=== PATIENT | male | born 1955 | race Caucasian/White ===

== ENCOUNTER 2019-11-15 16:15 | Observation (INO) | payer OTHER ==
--- NOTE | 2019-11-15 16:44 | ERPHSYRPT ---
- History of Present Illness Time Seen by Provider: 11/15/19 16:42 Source: patient Exam Limitations: no limitations Patient Subjective Stated Complaint: pt here for cough, sob for about a week now ,no fever, pt has hx of copd. pt o2 sat 81% pt placed on 4 l nc. pt wears o2 at night Triage Nursing Assessment: pt alert, waked in, resp easy, skin w.d.p,moves all ext well, Physician History: pt here for cough, sob for about a week now,no fever, pt has hx of copd. pt o2 sat 81% pt placed on 4 l nc. pt wears o2 at night no chest pain Timing/Duration: week(s) (one week) Activities at Onset: none Severity of Dyspnea-Max: mild Severity of Dyspnea-Current: moderate Possible Cause: no prior episodes Associated Symptoms: weakness, No chest pain/discomfort, No fever, No loss of appetite, No productive cough, No sweating International travel in last 2 weeks: No Allergies/Adverse Reactions: Penicillins Allergy (Mild, Verified 11/15/19 16:33) Hives Oldnzbo-Qze-Swi Reductase Inhibitor Allergy (Mild, Verified 11/15/19 16:33) Hives tramadol Allergy (Mild, Verified 11/15/19 16:33) rash, difficulty walking- muscle soreness Home Medications: Amlodipine Besylate 5 mg [Norvasc 5 mg] 5 mg PO DAILY 12/04/15 [History] Gabapentin [Neurontin] 300 mg PO BID 12/04/15 [History] Omeprazole [Prilosec] 40 mg PO DAILY 12/04/15 [History] Tamsulosin HCl [Flomax] 0.4 mg PO BID 12/04/15 [History] ARIPiprazole [Aripiprazole] 5 mg DAILY 11/15/19 [History] Albuterol 8 gm Mdi Hfa [Ventolin Hfa MDI] 1 ea DAILY 11/15/19 [History] Clopidogrel Bisulfate [Clopidogrel] 75 mg DAILY 11/15/19 [History] Dulaglutide [Trulicity] 0.75 mg WEEKLY 11/15/19 [History] Fluoxetine HCl 40 mg DAILY 11/15/19 [History] Fluticasone/Umeclidin/Vilanter [Trelegy Ellipta 100-62.5-25] 1 ea DAILY [History] Furosemide 40 mg [Lasix 40 MG] 40 mg DAILY 11/15/19 [History] Metoprolol Succinate 50 mg DAILY 11/15/19 [History] Modafinil [Provigil] 200 mg DAILY 11/15/19 [History] Mometasone/Formoterol [Dulera 200 Mcg-5 Mcg Inhaler] 2 puff BID 11/15/19 [ History] Niacin 1,000 mg DAILY 11/15/19 [History] Potassium Chloride [Klor-Con M20] 20 meq DAILY 11/15/19 [History] Solifenacin Succinate 1 ea DAILY 11/15/19 [History] lisinopriL [Lisinopril] 20 mg DAILY 11/15/19 [History] raNITIdine HCl [Zantac] 2 ea BID 11/15/19 [History] Hx Tetanus, Diphtheria Vaccination/Date Given: No Hx Influenza Vaccination/Date Given: Yes Hx Pneumococcal Vaccination/Date Given: Yes Immunizations Up to Date: Yes Travel Risk - International Travel Have you traveled outside of the country in past 3 weeks: No Have you or anyone close to you been diagnosed with or: No Do your reside in a community with a known COVID-19 case?: Yes If Yes where:: [place] - Coronavirus Screening Has patient experienced Coronavirus symptoms: Yes Symptoms experienced: respiratory symptoms (i.e.Cought,shortness of breath), weakness Date of respiratory symptoms onset:: 11/09/19 - Review of Systems Constitutional: Malaise, Weakness, No Fever, No Chills Eyes: No Symptoms Ears, Nose, & Throat: No Symptoms Respiratory: Dyspnea, Dyspnea on Exertion (WANG), No Cough Cardiac: No Chest Pain, No Edema, No Syncope Abdominal/Gastrointestinal: No Abdominal Pain, No Nausea, No Vomiting, No Diarrhea Genitourinary Symptoms: No Dysuria Musculoskeletal: No Back Pain, No Neck Pain Skin: No Rash Neurological: No Dizziness, No Focal Weakness, No Sensory Changes Psychological: No Symptoms Endocrine: No Symptoms All Other Systems: Reviewed and Negative - Past Medical History Pertinent Past Medical History: Yes Neurological History: Peripheral Neuropathy ENT History: No Pertinent History Cardiac History: High Cholesterol, Hypertension, Myocardial Infarction (PR) Respiratory History: No Pertinent History Endocrine Medical History: Diabetes Type II Musculoskeletal History: Arthritis GI Medical History: GERD History: No Pertinent History Psycho-Social History: No Pertinent History Male Reproductive Disorders: No Pertinent History Other Medical History: URINARY RETENTION. GOUT. chronic back pain - Past Surgical History Past Surgical History: Yes Neuro Surgical History: No Pertinent History Cardiac: Cardiac Catheterization, Cardiac Stent Respiratory: No Pertinent History Gastrointestinal: No Pertinent History Genitourinary: No Pertinent History Musculoskeletal: No Pertinent History Male Surgical History: Prostate Surgery Other Surgical History: FINGER REPAIR - Social History Smoking Status: Former smoker Exposure to second hand smoke: No Drug Use: none Patient Lives Alone: No Significant Family History: no pertinent family hx - Nursing Vital Signs Nursing Vital Signs: Initial Vital Signs Temperature 97.6 F 11/15/19 16:25 Pulse Rate 85 11/15/19 16:25 Respiratory Rate 22 11/15/19 16:25 Blood Pressure 117/74 11/15/19 16:25 O2 Sat by Pulse Oximetry 81 L 11/15/19 16:25 Pain Scale Pain Intensity 0 - Physical Exam General Appearance: no apparent distress, alert Eye Exam: PERRL/EOMI Neck Exam: normal inspection, supple Respiratory Exam: diminished breath sounds Cardiovascular/Chest Exam: normal heart sounds, regular rate/rhythm Abdominal/Gastrointestinal Exam: soft, No tenderness, No distention, No mass Extremity Exam: non-tender, normal range of motion, normal inspection, no calf tenderness, no pedal edema Neurologic Exam: alert, oriented x 3, cooperative, contact center professional II-XII nml as tested, sensation nml, No motor deficits Skin Exam: normal color, warm, No dry SpO2 Interpretation: hypoxic SpO2: 81 O2 Delivery: Nasal Cannula - Course Nursing assessment & vital signs reviewed: Yes - Radiology Exams Chest X-ray Interpretation: Reviewed by me, Negative Ordered Tests: Active Orders 24 hr Category Date Time Status Territory Sales Manager Medical STAT Care 11/15/19 16:33 Active EKG-ER Only STAT Care 11/15/19 16:33 Active IV Insertion STAT Care 11/15/19 16:33 Active IV Insertion-2nd Peripheral STAT Care 11/15/19 17:11 Active Oxygen-ED Only Nasal Cannula 4 lpm Care 11/15/19 16:33 Active Pulse Oximetry (ED) STAT Care 11/15/19 16:34 Active CHEST 1 VIEW (PORTABLE) Stat Exams 11/15/19 16:40 Taken CBC W DIFF Stat Lab 11/15/19 16:30 Completed CMP Stat Lab 11/15/19 16:30 Completed Lactic Acid Stat Lab 11/15/19 16:40 Completed MAGNESIUM Stat Lab 11/15/19 16:30 Received Manual Differential NC Stat Lab 11/15/19 16:30 Completed TROPONIN Stat Lab 11/15/19 16:30 Received UA W/RFX UR CULTURE Stat Lab 11/15/19 17:00 Completed Medication Summary Generic Name Dose Route Start Last Admin Trade Name Freq PRN Reason Stop Dose Admin Sodium Chloride 2,000 mls @ 999 mls/hr 11/15/19 16:49 11/15/19 16:58 Sodium Chloride 0.9% 1000 Ml IV 11/15/19 18:49 999 mls/hr .Q2H1M STA Administration Discontinued Medications Generic Name Dose Route Start Last Admin Trade Name Freq PRN Reason Stop Dose Admin Sodium Chloride Confirm 11/15/19 16:57 Sodium Chloride 0.9% 1000 Ml Administered 11/15/19 16:58 Dose 2,000 mls @ ud .ROUTE .STK-MED ONE Insulin Human Lispro 20 unit 11/15/19 16:49 11/15/19 16:58 Humalog SQ 11/15/19 16:50 20 unit STAT ONE Administration Insulin Human Lispro Confirm 11/15/19 16:57 Humalog Administered 11/15/19 16:58 Dose 20 unit .ROUTE .STK-MED ONE Lab/Rad Data: Laboratory Result Diagrams 11/15/19 16:30 11/15/19 16:30 Laboratory Results 11/15/19 11/15/19 11/15/19 Range/Units 17:00 16:40 16:30 WBC (4.0-10.5) K/mm3 RBC (4.1-5.6) M/mm3 Hgb (12.5-18.0) gm/dl Hct (42-50) % MCV (78-100) fl MCH (26-32) pg MCHC (32-36) g/dl RDW (11.5-14.0) % Plt Count (150-450) K/mm3 MPV (7.5-11.0) fl Sodium 128 L (137-145) mmol/L Potassium 4.2 (3.5-5.1) mmol/L Chloride 89 L (98-107) mmol/L Carbon Dioxide 24 (22-30) mmol/L Anion Gap 18.7 H (5-15) MEQ/L BUN 23 H (9-20) mg/dL Creatinine 1.44 H (0.66-1.25) mg/dL Estimated GFR 52.8 ML/MIN Glucose 783 H* (74-106) mg/dL Lactic Acid 4.7 H (0.4-2.0) Calcium 8.8 (8.4-10.2) mg/dL Total Bilirubin 0.60 (0.2-1.3) mg/dL AST 32 (17-59) U/L ALT 28 (0-50) U/L Alkaline Phosphatase 99 (38-126) U/L Serum Total Protein 6.5 (6.3-8.2) g/dL Albumin 3.7 (3.5-5.0) g/dL Urine Color STRAW (YELLOW) Urine Appearance CLEAR (CLEAR) Urine pH 5.0 (5-6) Ur Specific [place] 1.026 (1.005-1.025) Urine Protein NEGATIVE (Negative) Urine Ketones NEGATIVE (NEGATIVE) Urine Blood NEGATIVE (0-5) Marco Antonio/ul Urine Nitrite NEGATIVE (NEGATIVE) Urine Bilirubin NEGATIVE (NEGATIVE) Urine Urobilinogen NEGATIVE (0-1) mg/dL Ur Leukocyte Esterase NEGATIVE (NEGATIVE) Urine WBC (Auto) NONE (0-5) /HPF Urine Mucus (Auto) SLIGHT (NEGATIVE) /HPF Urine Culture Reflexed NO (NO) Urine Glucose >=500 (NEGATIVE) mg/dL 11/15/19 Range/Units 16:30 WBC 6.7 (4.0-10.5) K/mm3 RBC 4.87 (4.1-5.6) M/mm3 Hgb 14.7 (12.5-18.0) gm/dl Hct 43.2 (42-50) % MCV 88.7 (78-100) fl MCH 30.2 (26-32) pg MCHC 34.0 (32-36) g/dl RDW 14.4 H (11.5-14.0) % Plt Count 124 L (150-450) K/mm3 MPV 11.1 H (7.5-11.0) fl Sodium (137-145) mmol/L Potassium (3.5-5.1) mmol/L Chloride (98-107) mmol/L Carbon Dioxide (22-30) mmol/L Anion Gap (5-15) MEQ/L BUN (9-20) mg/dL Creatinine (0.66-1.25) mg/dL Estimated GFR ML/MIN Glucose (74-106) mg/dL Lactic Acid (0.4-2.0) Calcium (8.4-10.2) mg/dL Total Bilirubin (0.2-1.3) mg/dL AST (17-59) U/L ALT (0-50) U/L Alkaline Phosphatase (38-126) U/L Serum Total Protein (6.3-8.2) g/dL Albumin (3.5-5.0) g/dL Urine Color (YELLOW) Urine Appearance (CLEAR) Urine pH (5-6) Ur Specific [place] (1.005-1.025) Urine Protein (Negative) Urine Ketones (NEGATIVE) Urine Blood (0-5) [place]/ul Urine Nitrite (NEGATIVE) Urine Bilirubin (NEGATIVE) Urine Urobilinogen (0-1) mg/dL Ur Leukocyte Esterase (NEGATIVE) Urine WBC (Auto) (0-5) /HPF Urine Mucus (Auto) (NEGATIVE) /HPF Urine Culture Reflexed (NO) Urine Glucose (NEGATIVE) mg/dL - Progress Air Movement: fair Blood Culture(s) Obtained: No Antibiotics given: No Counseled pt/family regarding: lab results, diagnosis, need for follow-up, rad results - Departure Departure Disposition: Observation Clinical Impression: Diabetic hyperosmolar non-ketotic state Condition: Fair Critical Care Time: Yes Critical Care Time(excluding separately billable procedures): Critical 30-74 mins Referrals: ARELI QUINTERO MD [Primary Care Provider] -
[2019-11-15] MEDS ORDERED: HUMALOG SQ ONE (16:49)
[2019-11-15] MEDS ORDERED: Sodium Chloride 0.9% 1000 ML 2,000 ML IV STA (16:49)
[2019-11-15] MEDS ORDERED: HUMALOG ONE (16:57)
[2019-11-15] MEDS ORDERED: Sodium Chloride 0.9% 1000 ML 2,000 ML ONE (16:57)
[2019-11-15 17:08] LABS: Hematocrit 43.2 % (42-50); Hemoglobin 14.7 gm/dl (12.5-18.0); Mean Cell Volume 88.7 fl (78-100); Mean Corpuscular Hemoglobin 30.2 pg (26-32); Mean Platelet Volume 11.1 fl (7.5-11.0); Platelet Count 124 K/mm3 (150-450); Red Blood Count 4.87 M/mm3 (4.1-5.6); Red Cell Distribution Width 14.4 % (11.5-14.0); White Blood Count 6.7 K/mm3 (4.0-10.5)
[2019-11-15 17:13] LABS: ALBUMIN 3.7 g/dL (3.5-5.0); ANION GAP 18.7 MEQ/L (5-15); BILIRUBIN,TOTAL 0.6 mg/dL (0.2-1.3); Calcium 8.8 mg/dL (8.4-10.2); Creatinine 1 1.44 mg/dL (0.66-1.25); Potassium 4.2 mmol/L (3.5-5.1); Total Protein 6.5 g/dL (6.3-8.2)
[2019-11-15 17:16] LABS: Appearance CLEAR (CLEAR); Bilirubin NEGATIVE (NEGATIVE); Blood NEGATIVE Ery/ul (0-5); Glucose >=500 mg/dL (NEGATIVE); Ketones NEGATIVE (NEGATIVE); Leukocyte Esterase NEGATIVE (NEGATIVE); Mucus SLIGHT /HPF (NEGATIVE); Nitrite NEGATIVE (NEGATIVE); Protein,Urine Dip NEGATIVE (Negative); Specific Gravity 1.026 (1.005-1.025); Urobilinogen NEGATIVE mg/dL (0-1)
[2019-11-15 17:26] LABS: INFLUENZA A NEGATIVE (NEGATIVE); INFLUENZA B NEGATIVE (NEGATIVE); RESPIRATORY SYNCTIAL VIRUS NEGATIVE (Negative)
[2019-11-15] MEDS ORDERED: Sodium Chloride 0.9% W/ 20 mEq KCl/LITER 1,000 ML IV SCH (17:59)
[2019-11-15] MEDS ORDERED: HUMULIN R 100 UNIT in Sodium Chloride 0.9% 100 ML IVPB 100 ML IV PRN (17:59)
[2019-11-15] MEDS ORDERED: HUMULIN R ONE (18:27)
[2019-11-15] MEDS ORDERED: Sodium Chloride 0.9% 100 ML IVPB 100 ML IV ONE (18:27)
[2019-11-15] MEDS ORDERED: Sodium Chloride 0.9% W/ 20 mEq KCl/LITER 1,000 ML IV ONE (18:28)
[2019-11-15] MEDS ORDERED: PROVENTIL 2.5 MG/3 ML NEB IH PRN (19:00)
--- NOTE | 2019-11-15 19:25 | XRAY ---
Indication: Cough and short of breath. Comparison: September 04, 2011. Portable chest now underinflated with bibasilar discoid atelectasis. Remaining heart and upper lungs unremarkable. Bony thorax intact with mild degenerative changes.
[2019-11-15] MEDS ORDERED: Ventolin Hfa MDI IH PRN (20:26)
[2019-11-15] MEDS: Advair Hfa 115/21 Common canister IH SCH (21:33)
[2019-11-15] MEDS ORDERED: VENTOLIN COMMON CANISTER IH PRN (21:34)
[2019-11-16] MEDS: Dextrose 5% -0.45 NaCl 1000 ML 1,000 ML IV SCH ×2 (03:52→19:46)
[2019-11-16 04:36] LABS: Lactic Acid 1.3 (0.4-2.0); VBG BASE EXCESS 0.8 (-2.0-2.0); VBG CARBOXYHEMOGLOBIN 4.4 % T HGB (0.0-6.9); VBG HCO3- 25.3 meq/L (22-28); VBG HEMOGLOBIN 14.6; VBG O2 SATURATION 98.8 (95-100); VBG POTASSIUM 3.4 (3.5-5.1); VBG pH 7.42 (7.32-7.42)
[2019-11-16 04:59] LABS: BAND 2 % (0.0-2.0); Basophil 1 % (0.0-1.0); Eosinophil 2 % (0.00-3.0); Lymphocytes 16 % (24-44); Monocyte 5 % (0.0-12.0); Neutrophils 74 % (36.-66.); Platelet Estimate NORMAL (NORMAL); Total Cells Counted 100
[2019-11-16 05:00] LABS: ANISOCYTOSIS 2+; Poikilocytosis 2+
[2019-11-16] MEDS: HUMALOG SQ PRN ×6 (05:07→20:13)
[2019-11-16 06:21] LABS: Hematocrit 41.7 % (42-50); Mean Cell Volume 87.2 fl (78-100); Mean Corpuscular Hemoglobin 29.3 pg (26-32); Mean Corpuscular Hgb Concent. 33.6 g/dl (32-36); Mean Platelet Volume 10.7 fl (7.5-11.0); Platelet Count 121 K/mm3 (150-450); Red Blood Count 4.78 M/mm3 (4.1-5.6); Red Cell Distribution Width 14.2 % (11.5-14.0); White Blood Count 6.7 K/mm3 (4.0-10.5)
[2019-11-16 06:51] LABS: ALBUMIN 3.4 g/dL (3.5-5.0); ALKALINE PHOSPHATASE 74 U/L (38-126); ANION GAP 8.8 MEQ/L (5-15); BLOOD UREA NITROGEN 17 mg/dL (9-20); CHLORIDE 102 mmol/L (98-107); Calcium 8.2 mg/dL (8.4-10.2); Carbon Dioxide 30 mmol/L (22-30); Glucose 159 mg/dL (74-106); Potassium 3.4 mmol/L (3.5-5.1); SGOT/AST 32 U/L (17-59); SGPT/ALT 27 U/L (0-50); SODIUM 138 mmol/L (137-145); Total Protein 6.1 g/dL (6.3-8.2)
[2019-11-16] MEDS: Advair Hfa 115/21 Common canister IH SCH ×2 (07:07→21:09)
[2019-11-16 10:23] LABS: BAND 4 % (0.0-2.0); Eosinophil 6 % (0.00-3.0); Lymphocytes 20 % (24-44); Monocyte 7 % (0.0-12.0); Neutrophils 63 % (36.-66.); Total Cells Counted 100
[2019-11-16 10:24] LABS: Platelet Estimate NORMAL (NORMAL)
[2019-11-16] MEDS: ENOXAPARIN SODIUM SQ SCH (10:34)
[2019-11-16] MEDS: PROTONIX 40 MG IV IV SCH (10:34)
[2019-11-16] MEDS: Lantus Insulin SQ SCH (11:59)
[2019-11-16] MEDS ORDERED: Protonix 40MG Tablet PO SCH (12:00)
[2019-11-16] MEDS ORDERED: Abilify 10 MG PO SCH ×2 (12:00→20:00)
[2019-11-16] MEDS: ROCEPHIN 1 Gm-D5w 50 ml Bag** 1 G/50 ML IVPB IV SCH (12:01)
[2019-11-16] MEDS ORDERED: Ventolin Hfa MDI IH SCH (13:00)
[2019-11-16] MEDS: Zithromax 500 MG/ 250 ML NaCl Premix 500 MG/250 ML IVPB IV SCH (13:13)
[2019-11-16] MEDS: Ditropan 5 MG PO SCH ×2 (13:28→21:14)
[2019-11-16] MEDS: NEURONTIN 300 MG PO SCH ×2 (13:28→21:14)
[2019-11-16] MEDS: Flomax 0.4 MG PO SCH ×2 (13:29→21:14)
[2019-11-16] MEDS: Pepcid 20 MG PO SCH ×2 (13:29→21:14)
--- NOTE | 2019-11-16 13:30 | PCM.HP ---
History of Present Illness - Chief Complaint Chief Complaint: diabetic hyperosmolar ketosis, shortness of breath History of Present Illness: is a 64 year old male pt with DM (uncontrolled), COPD, and CKD, formerly of Dr. Abdullahi Prieto but most recently saw Kellie Sethitle x 1, who was admitted yesterday through ER with cough and SOB; he was found to have BS >700 so was admitted with diabetic hyperosmolar nonketotic state. CXR was nonacute. Flu, RSV, and strep swabs neg. UA neg. Troponin neg x 1. Pt denies any fever. His O2 sat was 81% in the ER. At home he wears 2L O2 per NC at night, but is currently on 5L NC. He states he's feeling fine "except for this cough." Pt was placed on IV insulin per protocol; this morning his BS fell under 200 so he was changed to D5 1/2 NS for fluids and started receiving novolog on sliding scale. Pt admits he is bad about taking his meds, often doesn't take them at all, and rarely checks his BS. Apparently his last A1c was > 14 (approx 1 mo ago). - Review of Systems Genitourinary Symptoms: Frequency Psychological: Depression, No Suicidal Ideations Endocrine: Polydipsia Medications & Allergies Home Medications: Home Medication List Amlodipine Besylate 5 mg [Norvasc 5 mg] 5 mg PO DAILY 12/04/15 [History Confirmed 11/15/19] Gabapentin [Neurontin] 300 mg PO BID 12/04/15 [History Confirmed 11/15/19] Omeprazole [Prilosec] 40 mg PO DAILY 12/04/15 [History Confirmed 11/15/19] Tamsulosin HCl [Flomax] 0.4 mg PO BID 12/04/15 [History Confirmed 11/15/19] ARIPiprazole [Aripiprazole] 5 mg DAILY 11/15/19 [History Confirmed 11/15/19] Albuterol 8 gm Mdi Hfa [Ventolin Hfa MDI] 1 ea QID 11/15/19 [History Confirmed 11/15/19] Clopidogrel Bisulfate [Clopidogrel] 75 mg DAILY 11/15/19 [History Confirmed ] Dulaglutide [Trulicity] 1.5 mg WEEKLY 11/15/19 [History Confirmed 11/15/19] Fluoxetine HCl 40 mg DAILY 11/15/19 [History Confirmed 11/15/19] Fluticasone/Umeclidin/Vilanter [Trelegy Ellipta 100-62.5-25] 1 ea DAILY [History Confirmed 11/15/19] Furosemide 40 mg [Lasix 40 MG] 40 mg DAILY 11/15/19 [History Confirmed ] Insulin Degludec [Tresiba Flextouch U-200] 200 unit SQ DAILY 11/15/19 [History Confirmed 11/15/19] Metoprolol Succinate 50 mg DAILY 11/15/19 [History Confirmed 11/15/19] Modafinil [Provigil] 200 mg DAILY 11/15/19 [History Confirmed 11/15/19] Niacin 1,000 mg DAILY 11/15/19 [History Confirmed 11/15/19] Potassium Chloride [Klor-Con M20] 20 meq DAILY 11/15/19 [History Confirmed 11/14] Solifenacin Succinate 1 ea DAILY 11/15/19 [History Confirmed 11/15/19] lisinopriL [Lisinopril] 10 mg DAILY 11/15/19 [History Confirmed 11/15/19] raNITIdine HCl [Zantac] 2 ea BID 11/15/19 [History Confirmed 11/15/19] Allergies/Adverse Reactions: Allergies Allergy/AdvReac Type Severity Reaction Status Date / Time Penicillins Allergy Mild Hives Verified 11/15/19 16:33 Wczpwav-Mfu-Qas Reductase Allergy Mild Hives Verified 11/15/19 16:33 Inhibitor tramadol Allergy Mild rash, Verified 11/15/19 16:33 difficulty walking- muscle soreness - Past Medical History Past Medical History: Yes Neurological History: Peripheral Neuropathy ENT History: No Pertinent History Cardiac History: High Cholesterol, Hypertension, Myocardial Infarction (HI) Respiratory History: COPD Endocrine Medical History: Diabetes Type II Musculoskelatal History: Arthritis GI Medical History: GERD History: No Pertinent History Pyscho-Social History: No Pertinent History Male Reproductive Disorders: Prostate Problems Comment: URINARY RETENTION. GOUT. chronic back pain - Past Surgical History Past Surgical History: Yes Neuro Surgical History: No Pertinent History Cardiac History: Cardiac Catheterization, Cardiac Stent Respiratory Surgery: No Pertinent History GI Surgical History: No Pertinent History Genitourinary Surgical Hx: No Pertinent History Musculskeletal Surgical Hx: No Pertinent History Male Surgical History: Prostate Surgery Other Surgical History: FINGER REPAIR - Social History Smoking Status: Former smoker Exposure to second hand smoke: No Alcohol: None Drug Use: none Significant Family History: no pertinent family hx - Physical Exam Vital Signs: Vital Signs - 24 hr Temp Pulse Resp BP Pulse Ox 11/16/19 12:00 97.6 F 88 14 116/74 95 11/16/19 08:00 97.8 F 77 20 99/56 95 11/16/19 07:08 78 20 95 11/16/19 04:00 98.4 F 75 19 108/70 96 11/16/19 00:01 77 11/16/19 00:00 98.2 F 77 19 119/70 96 11/15/19 21:35 80 17 96 11/15/19 20:00 98.0 F 75 18 114/87 95 11/15/19 19:19 98.0 F 75 20 127/79 99 11/15/19 17:27 81 L 11/15/19 17:10 80 20 107/66 95 11/15/19 16:34 81 L 11/15/19 16:25 97.6 F 85 20 117/74 94 L Oxygen-Last 24 hours Oxygen Flowrate (L/min)-RT 5 Oxygen Flowrate (L/min)-RT 4 Oxygen Flowrate (L/min)-RT 4 Oxygen Flowrate (L/min)-RT 4 General Appearance: no apparent distress, obese Neurologic Exam: alert, oriented x 3, cooperative Eye Exam: eyes nml inspection Ears, Nose, Throat Exam: moist mucous membranes Neck Exam: normal inspection, non-tender, No lymphadenopathy Respiratory Exam: lungs clear, diminished breath sounds (good air exchange), No crackles/rales, No rhonchi, No wheezing Cardiovascular Exam: regular rate/rhythm, normal heart sounds, No murmur Gastrointestinal/Abdomen Exam: soft, normal bowel sounds, No tenderness, No distention, No mass, No guarding, No rebound Back Exam: normal inspection, No rash Extremity Exam: normal inspection, No pedal edema, No swelling Skin Exam: normal color, warm, dry, No rash Results - Labs Lab/Micro Results: Accuchecks Accucheck Value: 285 Accucheck Value: 289 Accucheck Value: 204 Accucheck Value: 165 Accucheck Value: 173 Accucheck Value: 156 Accucheck Value: 138 Lab Results-Last 24 Hours 11/15/19 11/15/19 11/15/19 Range/Units 16:30 16:30 16:30 WBC 6.7 (4.0-10.5) K/mm3 RBC 4.87 (4.1-5.6) M/mm3 Hgb 14.7 (12.5-18.0) gm/dl Hct 43.2 (42-50) % MCV 88.7 (78-100) fl MCH 30.2 (26-32) pg MCHC 34.0 (32-36) g/dl RDW 14.4 H (11.5-14.0) % Plt Count 124 L (150-450) K/mm3 MPV 11.1 H (7.5-11.0) fl Segmented Neutrophils 74 H (36.-66.) % Band Neutrophils 2 (0.0-2.0) % Lymphocytes (Manual) 16 L (24-44) % Monocytes (Manual) 5 (0.0-12.0) % Eosinophils (Manual) 2 (0.00-3.0) % Basophils (Manual) 1 (0.0-1.0) % Platelet Estimate NORMAL (NORMAL) RBC Morphology ABNORMAL Poikilocytosis 2+ Anisocytosis 2+ pO2/FiO2 Ratio % VBG pH (7.32-7.42) VBG pCO2 at Pat Temp (42-55) mm/Hg VBG pO2 at Pat Temp (25-40) mm/Hg VBG HCO3 (22-28) meq/L VBG O2 Sat (Leroy) (95-100) VBG Base Excess (-2.0-2.0) VBG Hemoglobin VBG Carboxyhemoglobin (0.0-6.9) % T HGB POC Potassium (3.5-5.1) Sodium 128 L (137-145) mmol/L Potassium 4.2 (3.5-5.1) mmol/L Chloride 89 L (98-107) mmol/L Carbon Dioxide 24 (22-30) mmol/L Anion Gap 18.7 H (5-15) MEQ/L BUN 23 H (9-20) mg/dL Creatinine 1.44 H (0.66-1.25) mg/dL Estimated GFR 52.8 ML/MIN Glucose 783 H* (74-106) mg/dL Lactic Acid (0.4-2.0) Calcium 8.8 (8.4-10.2) mg/dL Magnesium (1.6-2.3) mg/dL Total Bilirubin 0.60 (0.2-1.3) mg/dL AST 32 (17-59) U/L ALT 28 (0-50) U/L Alkaline Phosphatase 99 (38-126) U/L Troponin I (0.000-0.034) ng/mL Serum Total Protein 6.5 (6.3-8.2) g/dL Albumin 3.7 (3.5-5.0) g/dL Urine Color (YELLOW) Urine Appearance (CLEAR) Urine pH (5-6) Ur Specific [place] (1.005-1.025) Urine Protein (Negative) Urine Ketones (NEGATIVE) Urine Blood (0-5) Marco Antonio/ul Urine Nitrite (NEGATIVE) Urine Bilirubin (NEGATIVE) Urine Urobilinogen (0-1) mg/dL Ur Leukocyte Esterase (NEGATIVE) Urine WBC (Auto) (0-5) /HPF Urine Mucus (Auto) (NEGATIVE) /HPF Urine Culture Reflexed (NO) Urine Glucose (NEGATIVE) mg/dL Influenza Type A Ag NEGATIVE (NEGATIVE) Influenza Type B Ag NEGATIVE (NEGATIVE) RSV (PCR) NEGATIVE (Negative) Group A Strep Antibody NOT DETECTED (NEGATIVE) 11/15/19 11/15/19 11/15/19 Range/Units 16:30 16:30 16:40 WBC (4.0-10.5) K/mm3 RBC (4.1-5.6) M/mm3 Hgb (12.5-18.0) gm/dl Hct (42-50) % MCV (78-100) fl MCH (26-32) pg MCHC (32-36) g/dl RDW (11.5-14.0) % Plt Count (150-450) K/mm3 MPV (7.5-11.0) fl Segmented Neutrophils (36.-66.) % Band Neutrophils (0.0-2.0) % Lymphocytes (Manual) (24-44) % Monocytes (Manual) (0.0-12.0) % Eosinophils (Manual) (0.00-3.0) % Basophils (Manual) (0.0-1.0) % Platelet Estimate (NORMAL) RBC Morphology Poikilocytosis Anisocytosis pO2/FiO2 Ratio % VBG pH (7.32-7.42) VBG pCO2 at Pat Temp (42-55) mm/Hg VBG pO2 at Pat Temp (25-40) mm/Hg VBG HCO3 (22-28) meq/L VBG O2 Sat (Leroy) (95-100) VBG Base Excess (-2.0-2.0) VBG Hemoglobin VBG Carboxyhemoglobin (0.0-6.9) % T HGB POC Potassium (3.5-5.1) Sodium (137-145) mmol/L Potassium (3.5-5.1) mmol/L Chloride (98-107) mmol/L Carbon Dioxide (22-30) mmol/L Anion Gap (5-15) MEQ/L BUN (9-20) mg/dL Creatinine (0.66-1.25) mg/dL Estimated GFR ML/MIN Glucose (74-106) mg/dL Lactic Acid 4.7 H (0.4-2.0) Calcium (8.4-10.2) mg/dL Magnesium 1.5 L (1.6-2.3) mg/dL Total Bilirubin (0.2-1.3) mg/dL AST (17-59) U/L ALT (0-50) U/L Alkaline Phosphatase (38-126) U/L Troponin I < 0.012 (0.000-0.034) ng/mL Serum Total Protein (6.3-8.2) g/dL Albumin (3.5-5.0) g/dL Urine Color (YELLOW) Urine Appearance (CLEAR) Urine pH (5-6) Ur Specific [place] (1.005-1.025) Urine Protein (Negative) Urine Ketones (NEGATIVE) Urine Blood (0-5) Marco Antonio/ul Urine Nitrite (NEGATIVE) Urine Bilirubin (NEGATIVE) Urine Urobilinogen (0-1) mg/dL Ur Leukocyte Esterase (NEGATIVE) Urine WBC (Auto) (0-5) /HPF Urine Mucus (Auto) (NEGATIVE) /HPF Urine Culture Reflexed (NO) Urine Glucose (NEGATIVE) mg/dL Influenza Type A Ag (NEGATIVE) Influenza Type B Ag (NEGATIVE) RSV (PCR) (Negative) Group A Strep Antibody (NEGATIVE) 11/15/19 11/15/19 11/15/19 Range/Units 17:00 18:35 18:50 WBC (4.0-10.5) K/mm3 RBC (4.1-5.6) M/mm3 Hgb (12.5-18.0) gm/dl Hct (42-50) % MCV (78-100) fl MCH (26-32) pg MCHC (32-36) g/dl RDW (11.5-14.0) % Plt Count (150-450) K/mm3 MPV (7.5-11.0) fl Segmented Neutrophils (36.-66.) % Band Neutrophils (0.0-2.0) % Lymphocytes (Manual) (24-44) % Monocytes (Manual) (0.0-12.0) % Eosinophils (Manual) (0.00-3.0) % Basophils (Manual) (0.0-1.0) % Platelet Estimate (NORMAL) RBC Morphology Poikilocytosis Anisocytosis pO2/FiO2 Ratio % VBG pH (7.32-7.42) VBG pCO2 at Pat Temp (42-55) mm/Hg VBG pO2 at Pat Temp (25-40) mm/Hg VBG HCO3 (22-28) meq/L VBG O2 Sat (Leroy) (95-100) VBG Base Excess (-2.0-2.0) VBG Hemoglobin VBG Carboxyhemoglobin (0.0-6.9) % T HGB POC Potassium (3.5-5.1) Sodium (137-145) mmol/L Potassium (3.5-5.1) mmol/L Chloride (98-107) mmol/L Carbon Dioxide (22-30) mmol/L Anion Gap (5-15) MEQ/L BUN (9-20) mg/dL Creatinine (0.66-1.25) mg/dL Estimated GFR ML/MIN Glucose 519 H* (74-106) mg/dL Lactic Acid 2.2 H (0.4-2.0) Calcium (8.4-10.2) mg/dL Magnesium (1.6-2.3) mg/dL Total Bilirubin (0.2-1.3) mg/dL AST (17-59) U/L ALT (0-50) U/L Alkaline Phosphatase (38-126) U/L Troponin I (0.000-0.034) ng/mL Serum Total Protein (6.3-8.2) g/dL Albumin (3.5-5.0) g/dL Urine Color STRAW (YELLOW) Urine Appearance CLEAR (CLEAR) Urine pH 5.0 (5-6) Ur Specific [place] 1.026 (1.005-1.025) Urine Protein NEGATIVE (Negative) Urine Ketones NEGATIVE (NEGATIVE) Urine Blood NEGATIVE (0-5) Marco Antonio/ul Urine Nitrite NEGATIVE (NEGATIVE) Urine Bilirubin NEGATIVE (NEGATIVE) Urine Urobilinogen NEGATIVE (0-1) mg/dL Ur Leukocyte Esterase NEGATIVE (NEGATIVE) Urine WBC (Auto) NONE (0-5) /HPF Urine Mucus (Auto) SLIGHT (NEGATIVE) /HPF Urine Culture Reflexed NO (NO) Urine Glucose >=500 (NEGATIVE) mg/dL Influenza Type A Ag (NEGATIVE) Influenza Type B Ag (NEGATIVE) RSV (PCR) (Negative) Group A Strep Antibody (NEGATIVE) 11/15/19 11/15/19 11/15/19 Range/Units 19:32 20:33 22:00 WBC (4.0-10.5) K/mm3 RBC (4.1-5.6) M/mm3 Hgb (12.5-18.0) gm/dl Hct (42-50) % MCV (78-100) fl MCH (26-32) pg MCHC (32-36) g/dl RDW (11.5-14.0) % Plt Count (150-450) K/mm3 MPV (7.5-11.0) fl Segmented Neutrophils (36.-66.) % Band Neutrophils (0.0-2.0) % Lymphocytes (Manual) (24-44) % Monocytes (Manual) (0.0-12.0) % Eosinophils (Manual) (0.00-3.0) % Basophils (Manual) (0.0-1.0) % Platelet Estimate (NORMAL) RBC Morphology Poikilocytosis Anisocytosis pO2/FiO2 Ratio % VBG pH (7.32-7.42) VBG pCO2 at Pat Temp (42-55) mm/Hg VBG pO2 at Pat Temp (25-40) mm/Hg VBG HCO3 (22-28) meq/L VBG O2 Sat (Leroy) (95-100) VBG Base Excess (-2.0-2.0) VBG Hemoglobin VBG Carboxyhemoglobin (0.0-6.9) % T HGB POC Potassium (3.5-5.1) Sodium (137-145) mmol/L Potassium (3.5-5.1) mmol/L Chloride (98-107) mmol/L Carbon Dioxide (22-30) mmol/L Anion Gap (5-15) MEQ/L BUN (9-20) mg/dL Creatinine (0.66-1.25) mg/dL Estimated GFR ML/MIN Glucose 406 H 322 H 290 H (74-106) mg/dL Lactic Acid (0.4-2.0) Calcium (8.4-10.2) mg/dL Magnesium (1.6-2.3) mg/dL Total Bilirubin (0.2-1.3) mg/dL AST (17-59) U/L ALT (0-50) U/L Alkaline Phosphatase (38-126) U/L Troponin I (0.000-0.034) ng/mL Serum Total Protein (6.3-8.2) g/dL Albumin (3.5-5.0) g/dL Urine Color (YELLOW) Urine Appearance (CLEAR) Urine pH (5-6) Ur Specific [place] (1.005-1.025) Urine Protein (Negative) Urine Ketones (NEGATIVE) Urine Blood (0-5) Marco Antonio/ul Urine Nitrite (NEGATIVE) Urine Bilirubin (NEGATIVE) Urine Urobilinogen (0-1) mg/dL Ur Leukocyte Esterase (NEGATIVE) Urine WBC (Auto) (0-5) /HPF Urine Mucus (Auto) (NEGATIVE) /HPF Urine Culture Reflexed (NO) Urine Glucose (NEGATIVE) mg/dL Influenza Type A Ag (NEGATIVE) Influenza Type B Ag (NEGATIVE) RSV (PCR) (Negative) Group A Strep Antibody (NEGATIVE) 11/15/19 11/16/19 11/16/19 Range/Units 23:35 04:31 05:25 WBC 6.7 (4.0-10.5) K/mm3 RBC 4.78 (4.1-5.6) M/mm3 Hgb 14.0 (12.5-18.0) gm/dl Hct 41.7 L (42-50) % MCV 87.2 (78-100) fl MCH 29.3 (26-32) pg MCHC 33.6 (32-36) g/dl RDW 14.2 H (11.5-14.0) % Plt Count 121 L (150-450) K/mm3 MPV 10.7 (7.5-11.0) fl Segmented Neutrophils 63 (36.-66.) % Band Neutrophils 4 H (0.0-2.0) % Lymphocytes (Manual) 20 L (24-44) % Monocytes (Manual) 7 (0.0-12.0) % Eosinophils (Manual) 6 H (0.00-3.0) % Basophils (Manual) (0.0-1.0) % Platelet Estimate NORMAL (NORMAL) RBC Morphology NORMAL Poikilocytosis Anisocytosis pO2/FiO2 Ratio 36.0 % VBG pH 7.42 (7.32-7.42) VBG pCO2 at Pat Temp 39 L (42-55) mm/Hg VBG pO2 at Pat Temp 148 H (25-40) mm/Hg VBG HCO3 25.3 (22-28) meq/L VBG O2 Sat (Leroy) 98.8 (95-100) VBG Base Excess 0.8 (-2.0-2.0) VBG Hemoglobin 14.6 VBG Carboxyhemoglobin 4.4 (0.0-6.9) % T HGB POC Potassium 3.4 L (3.5-5.1) Sodium (137-145) mmol/L Potassium (3.5-5.1) mmol/L Chloride (98-107) mmol/L Carbon Dioxide (22-30) mmol/L Anion Gap (5-15) MEQ/L BUN (9-20) mg/dL Creatinine (0.66-1.25) mg/dL Estimated GFR ML/MIN Glucose 267 H (74-106) mg/dL Lactic Acid 1.3 (0.4-2.0) Calcium (8.4-10.2) mg/dL Magnesium (1.6-2.3) mg/dL Total Bilirubin (0.2-1.3) mg/dL AST (17-59) U/L ALT (0-50) U/L Alkaline Phosphatase (38-126) U/L Troponin I (0.000-0.034) ng/mL Serum Total Protein (6.3-8.2) g/dL Albumin (3.5-5.0) g/dL Urine Color (YELLOW) Urine Appearance (CLEAR) Urine pH (5-6) Ur Specific [place] (1.005-1.025) Urine Protein (Negative) Urine Ketones (NEGATIVE) Urine Blood (0-5) Marco Antonio/ul Urine Nitrite (NEGATIVE) Urine Bilirubin (NEGATIVE) Urine Urobilinogen (0-1) mg/dL Ur Leukocyte Esterase (NEGATIVE) Urine WBC (Auto) (0-5) /HPF Urine Mucus (Auto) (NEGATIVE) /HPF Urine Culture Reflexed (NO) Urine Glucose (NEGATIVE) mg/dL Influenza Type A Ag (NEGATIVE) Influenza Type B Ag (NEGATIVE) RSV (PCR) (Negative) Group A Strep Antibody (NEGATIVE) 11/16/19 Range/Units 05:25 WBC (4.0-10.5) K/mm3 RBC (4.1-5.6) M/mm3 Hgb (12.5-18.0) gm/dl Hct (42-50) % MCV (78-100) fl MCH (26-32) pg MCHC (32-36) g/dl RDW (11.5-14.0) % Plt Count (150-450) K/mm3 MPV (7.5-11.0) fl Segmented Neutrophils (36.-66.) % Band Neutrophils (0.0-2.0) % Lymphocytes (Manual) (24-44) % Monocytes (Manual) (0.0-12.0) % Eosinophils (Manual) (0.00-3.0) % Basophils (Manual) (0.0-1.0) % Platelet Estimate (NORMAL) RBC Morphology Poikilocytosis Anisocytosis pO2/FiO2 Ratio % VBG pH (7.32-7.42) VBG pCO2 at Pat Temp (42-55) mm/Hg VBG pO2 at Pat Temp (25-40) mm/Hg VBG HCO3 (22-28) meq/L VBG O2 Sat (Leroy) (95-100) VBG Base Excess (-2.0-2.0) VBG Hemoglobin VBG Carboxyhemoglobin (0.0-6.9) % T HGB POC Potassium (3.5-5.1) Sodium 138 D (137-145) mmol/L Potassium 3.4 L (3.5-5.1) mmol/L Chloride 102 D (98-107) mmol/L Carbon Dioxide 30 (22-30) mmol/L Anion Gap 8.8 (5-15) MEQ/L BUN 17 (9-20) mg/dL Creatinine 1.20 (0.66-1.25) mg/dL Estimated GFR > 60.0 ML/MIN Glucose 159 H (74-106) mg/dL Lactic Acid (0.4-2.0) Calcium 8.2 L (8.4-10.2) mg/dL Magnesium (1.6-2.3) mg/dL Total Bilirubin 0.60 (0.2-1.3) mg/dL AST 32 (17-59) U/L ALT 27 (0-50) U/L Alkaline Phosphatase 74 (38-126) U/L Troponin I (0.000-0.034) ng/mL Serum Total Protein 6.1 L (6.3-8.2) g/dL Albumin 3.4 L (3.5-5.0) g/dL Urine Color (YELLOW) Urine Appearance (CLEAR) Urine pH (5-6) Ur Specific [place] (1.005-1.025) Urine Protein (Negative) Urine Ketones (NEGATIVE) Urine Blood (0-5) Marco Antonio/ul Urine Nitrite (NEGATIVE) Urine Bilirubin (NEGATIVE) Urine Urobilinogen (0-1) mg/dL Ur Leukocyte Esterase (NEGATIVE) Urine WBC (Auto) (0-5) /HPF Urine Mucus (Auto) (NEGATIVE) /HPF Urine Culture Reflexed (NO) Urine Glucose (NEGATIVE) mg/dL Influenza Type A Ag (NEGATIVE) Influenza Type B Ag (NEGATIVE) RSV (PCR) (Negative) Group A Strep Antibody (NEGATIVE) Accuchecks Accucheck Value: 285 Accucheck Value: 289 Accucheck Value: 204 Accucheck Value: 165 Accucheck Value: 173 Accucheck Value: 156 Accucheck Value: 138 - Radiology Impressions Radiology Exams & Impressions: Radiology Procedures Category Date Time Status CHEST 1 VIEW (PORTABLE) Stat Exams 11/15/19 16:40 Completed - Other Procedures and Tests Respiratory Therapy 11/15/19 17:59 Oxygen Oxymizer LPM 3 lpm 11/15/19 19:00 BiPap/CPAP ROUTINE 11/15/19 21:37 Respiratory Therapy Assessment DAILY Assessment/Plan (1) Diabetic hyperosmolar non-ketotic state Current Visit: Yes Status: Acute Assessment & Plan: Resolved. Will restart his tresiba; when he takes it, has been taking 140 units in the morning, so will start here with 100 units Lantus q a.m. Checking BS q4h currently. Code(s): E11.00 - TYPE 2 DIAB W HYPROSM W/O NONKET HYPRGLY-HYPROS COMA ([facility]) (2) COPD exacerbation Current Visit: Yes Status: Acute Assessment & Plan: Started IV zithromax and rocephin this morning. Pt still has quite an O2 requirement so I advised he should stay tonight and re-eval in the morning. Code(s): J44.1 - CHRONIC OBSTRUCTIVE PULMONARY DISEASE W (ACUTE) EXACERBATION (3) Chronic kidney disease (CKD) Current Visit: Yes Status: Chronic Qualifiers: Chronic kidney disease stage: stage 2 (mild) Qualified Code(s): N18.2 - Chronic kidney disease, stage 2 (mild) Assessment & Plan: recheck in A.m. Code(s): N18.9 - CHRONIC KIDNEY DISEASE, UNSPECIFIED
[2019-11-16] MEDS ORDERED: Zestril 10 MG PO SCH (20:00)
[2019-11-16] MEDS ORDERED: Prozac 20 MG PO SCH (20:00)
[2019-11-17] MEDS: HUMALOG SQ PRN ×2 (00:07→07:57)
[2019-11-17 05:09] LABS: Hematocrit 38.9 % (42-50); Hemoglobin 12.9 gm/dl (12.5-18.0); Mean Cell Volume 89.2 fl (78-100); Mean Corpuscular Hemoglobin 29.6 pg (26-32); Mean Corpuscular Hgb Concent. 33.2 g/dl (32-36); Mean Platelet Volume 10.4 fl (7.5-11.0); Platelet Count 108 K/mm3 (150-450); Red Blood Count 4.36 M/mm3 (4.1-5.6); White Blood Count 4.9 K/mm3 (4.0-10.5)
[2019-11-17 05:22] LABS: ANION GAP 8.4 MEQ/L (5-15); BLOOD UREA NITROGEN 14 mg/dL (9-20); CHLORIDE 101 mmol/L (98-107); Calcium 7.6 mg/dL (8.4-10.2); Carbon Dioxide 28 mmol/L (22-30); Creatinine 1 1.11 mg/dL (0.66-1.25); Glucose 339 mg/dL (74-106); Potassium 3.9 mmol/L (3.5-5.1); SODIUM 134 mmol/L (137-145)
[2019-11-17 06:55] VITALS: BP 114/77
[2019-11-17] MEDS ORDERED: MEDICATION INTERVENTION MC SCH (07:45)
[2019-11-17] MEDS: Advair Hfa 115/21 Common canister IH SCH (07:57)
[2019-11-17 08:06] VITALS: O2SAT 94
[2019-11-17 08:11] LABS: ANISOCYTOSIS 1+; BAND 3 % (0.0-2.0); Eosinophil 4 % (0.00-3.0); Lymphocytes 19 % (24-44); Monocyte 2 % (0.0-12.0); Neutrophils 72 % (36.-66.); Platelet Estimate NORMAL (NORMAL); Total Cells Counted 100; Toxic Granulation 1+
[2019-11-17 08:17] VITALS: PULSE 78
--- NOTE | 2019-11-17 08:35 | PCM.DS ---
Discharge Summary Date of Admission: 11/15/19 17:50 Admitting Physician: FERNANDO WANG Primary Care Provider: ARELI QUINTERO Allergies Allergies Penicillins Allergy (Mild, Verified 11/15/19 16:33) Hives Kdereiq-Nxs-Env Reductase Inhibitor Allergy (Mild, Verified 11/15/19 16:33) Hives tramadol Allergy (Mild, Verified 11/15/19 16:33) rash, difficulty walking- muscle soreness Hospital Summary - Hospital Course Hospital Course: is a 64 year old male pt with DM (uncontrolled), COPD, and CKD, formerly of Dr. Abdullahi Prieto but most recently saw Kellie Ariza x 1, who was admitted yesterday through ER with cough and SOB; he was found to have BS >700 so was admitted with diabetic hyperosmolar nonketotic state. CXR was nonacute. Flu, RSV, and strep swabs neg. UA neg. Troponin neg x 1. Pt denies any fever. When I saw the patient the day after his admission, he had an O2 requirement of 5L NC; I did start him on IV rocephin and zithromax. Today his O2 requirement is down to 3L NC (pt typically on 2L NC at night only). He is feeling well aside from his cough. Blood sugars have been in [id number]. Will d/c pt to home on po cefdinir and zithromax, after today's IV dose. He will f/u in 1 week outpatient (would advise pt call office before coming in to check the status of COVID-19 precautions). - Vitals & Intake/Output Vital Signs: Vital Signs Temperature 97.9 F 11/17/19 06:54 Pulse Rate 78 11/17/19 08:00 Respiratory Rate 14 11/17/19 08:00 Blood Pressure 114/77 11/17/19 06:54 O2 Sat by Pulse Oximetry 94 L 11/17/19 08:00 Intake & Output: Intake & Output 11/14/19 11/15/19 11/16/19 11/17/19 11:59 11:59 11:59 11:59 Intake Total 2467 2759 Output Total 600 1450 Balance 1867 1309 Weight 106.7 kg - Lab Result Diagrams: 11/17/19 05:07 11/17/19 05:07 Lab Results-Last 24 Hrs: Accuchecks Date 11/17/19 Time 07:30 Accucheck Value: 269 Accucheck Value: 329 Accucheck Value: 346 Accucheck Value: 348 Accucheck Value: 225 Accucheck Value: 285 Accucheck Value: 289 Lab Results-Last 24 Hours 11/15/19 11/16/19 11/17/19 Range/Units 16:30 05:25 05:07 WBC 4.9 (4.0-10.5) K/mm3 RBC 4.36 (4.1-5.6) M/mm3 Hgb 12.9 (12.5-18.0) gm/dl Hct 38.9 L (42-50) % MCV 89.2 (78-100) fl MCH 29.6 (26-32) pg MCHC 33.2 (32-36) g/dl RDW 14.0 (11.5-14.0) % Plt Count 108 L (150-450) K/mm3 MPV 10.4 (7.5-11.0) fl Segmented Neutrophils 63 72 H (36.-66.) % Band Neutrophils 4 H 3 H (0.0-2.0) % Lymphocytes (Manual) 20 L 19 L (24-44) % Monocytes (Manual) 7 2 (0.0-12.0) % Eosinophils (Manual) 6 H 4 H (0.00-3.0) % Toxic Granulation 1+ Platelet Estimate NORMAL NORMAL (NORMAL) RBC Morphology NORMAL ABNORMAL Anisocytosis 1+ Sodium (137-145) mmol/L Potassium (3.5-5.1) mmol/L Chloride (98-107) mmol/L Carbon Dioxide (22-30) mmol/L Anion Gap (5-15) MEQ/L BUN (9-20) mg/dL Creatinine (0.66-1.25) mg/dL Estimated GFR ML/MIN Glucose (74-106) mg/dL Calcium (8.4-10.2) mg/dL Procalcitonin 0.12 H (0.00-0.09) ng/mL 11/17/19 Range/Units 05:07 WBC (4.0-10.5) K/mm3 RBC (4.1-5.6) M/mm3 Hgb (12.5-18.0) gm/dl Hct (42-50) % MCV (78-100) fl MCH (26-32) pg MCHC (32-36) g/dl RDW (11.5-14.0) % Plt Count (150-450) K/mm3 MPV (7.5-11.0) fl Segmented Neutrophils (36.-66.) % Band Neutrophils (0.0-2.0) % Lymphocytes (Manual) (24-44) % Monocytes (Manual) (0.0-12.0) % Eosinophils (Manual) (0.00-3.0) % Toxic Granulation Platelet Estimate (NORMAL) RBC Morphology Anisocytosis Sodium 134 L (137-145) mmol/L Potassium 3.9 (3.5-5.1) mmol/L Chloride 101 (98-107) mmol/L Carbon Dioxide 28 (22-30) mmol/L Anion Gap 8.4 (5-15) MEQ/L BUN 14 (9-20) mg/dL Creatinine 1.11 (0.66-1.25) mg/dL Estimated GFR > 60.0 ML/MIN Glucose 339 H (74-106) mg/dL Calcium 7.6 L (8.4-10.2) mg/dL Procalcitonin (0.00-0.09) ng/mL Micro Results-Entire Visit: Accuchecks Date 11/17/19 Time 07:30 Accucheck Value: 269 Accucheck Value: 329 Accucheck Value: 346 Accucheck Value: 348 Accucheck Value: 225 Accucheck Value: 285 Accucheck Value: 289 - Radiology Exams Ordered Rad Exams-Entire Visit: Radiology Procedures Category Date Time Status CHEST 1 VIEW (PORTABLE) Stat Exams 11/15/19 16:40 Completed - Procedures and Test Procedures and Tests throughout Hospitalization: Therapy Orders & Screens 11/15/19 17:59 Oxygen Oxymizer LPM 3 lpm Comment: 11/15/19 19:00 BiPap/CPAP ROUTINE Comment: Diagnosis: diabetic hyperosmolar ketosis, shortness of breath 11/15/19 19:41 RT Screen per Nursing Assess ONCE Comment: Protocol Order Physician Instructions: Greater than 3 points order RT Admission Screen Reason For Exam: Triggered on Admission Diagnosis: diabetic hyperosmolar ketosis, shortness of breath Diagnosis: diabetic hyperosmolar ketosis, shortness of breath Pneumonia: No Home O2: Yes Asthma: No CHF: Yes Home CPAP/BIPAP: Yes Home Nebs/MDI: Yes Total Points: 18 11/14/ 21:37 Respiratory Therapy Assessment DAILY Comment: Diagnosis: diabetic hyperosmolar ketosis, shortness of breath Discharge Exam General Appearance: no apparent distress, obese Neurologic Exam: alert, oriented x 3, cooperative Eye Exam: eyes nml inspection Ears, Nose, Throat Exam: moist mucous membranes Respiratory Exam: diminished breath sounds (good air eschange), No crackles/ rales, No rhonchi, No wheezing Cardiovascular Exam: regular rate/rhythm, normal heart sounds, No murmur Gastrointestinal/Abdomen Exam: soft, normal bowel sounds, No distention Back Exam: normal inspection, No rash Extremity Exam: normal inspection, No pedal edema, No swelling Skin Exam: normal color, warm, dry, No rash Final Diagnosis/Problem List - Final Discharge Diagnosis/Problem (1) Diabetic hyperosmolar non-ketotic state Current Visit: Yes Status: Resolved Assessment & Plan: Discussed with pt frankly that if he does not start controlling his diabetes, his lifespan is going to be drastically shortened. Code(s): E11.00 - TYPE 2 DIAB W HYPROSM W/O NONKET HYPRGLY-HYPROS COMA ([facility]) (2) COPD exacerbation Current Visit: Yes Status: Acute Assessment & Plan: Much improved. Home on O2, 3L currently. 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 Code(s): J44.1 - CHRONIC OBSTRUCTIVE PULMONARY DISEASE W (ACUTE) EXACERBATION (3) Chronic kidney disease (CKD) Current Visit: Yes Status: Chronic Code(s): N18.9 - CHRONIC KIDNEY DISEASE, UNSPECIFIED (4) Diabetes mellitus type 2, uncontrolled Current Visit: Yes Status: Chronic Assessment & Plan: At home pt should be checking his BS QID. On Insulin and tresiba, and needs to be more mindful of taking his meds. Last a1c in our chart was in 2018; was reported to me that he had an a1c of >14 in Sep 2019, but I do not see this result. Code(s): E11.65 - TYPE 2 DIABETES MELLITUS WITH HYPERGLYCEMIA - Discharge Disposition: Home, Self-Care Condition: Stable Prescriptions: New Cefdinir 300 mg PO BID #16 capsule Azithromycin [Zithromax] 250 mg PO DAILY 3 Days #3 tablet Continue Amlodipine Besylate 5 mg [Norvasc 5 mg] 5 mg PO DAILY Tamsulosin HCl [Flomax] 0.4 mg PO BID Omeprazole [Prilosec] 40 mg PO DAILY Gabapentin [Neurontin] 300 mg PO BID Modafinil [Provigil] 200 mg DAILY raNITIdine HCl [Zantac] 2 ea BID Albuterol 8 gm Mdi Hfa [Ventolin Hfa MDI] 1 ea QID Solifenacin Succinate 1 ea DAILY Potassium Chloride [Klor-Con M20] 20 meq DAILY Furosemide 40 mg [Lasix 40 MG] 40 mg DAILY lisinopriL [Lisinopril] 10 mg DAILY Fluoxetine HCl 40 mg DAILY Clopidogrel Bisulfate [Clopidogrel] 75 mg DAILY Metoprolol Succinate 50 mg DAILY Niacin 1,000 mg DAILY Dulaglutide [Trulicity] 1.5 mg WEEKLY ARIPiprazole [Aripiprazole] 5 mg DAILY Fluticasone/Umeclidin/Vilanter [Trelegy Ellipta 100-62.5-25] 1 ea DAILY Insulin Degludec [Tresiba Flextouch U-200] 200 unit SQ DAILY Follow up with: ARELI QUINTERO MD [Primary Care Provider] - 1 Week
[2019-11-17] MEDS: ROCEPHIN 1 Gm-D5w 50 ml Bag** 1 G/50 ML IVPB IV SCH (08:51)
[2019-11-17] MEDS: Flomax 0.4 MG PO SCH (08:57)
[2019-11-17] MEDS: Ditropan 5 MG PO SCH (08:57)
[2019-11-17] MEDS: NEURONTIN 300 MG PO SCH (08:57)
[2019-11-17] MEDS: PROTONIX 40 MG IV IV SCH (08:57)
[2019-11-17] MEDS: Pepcid 20 MG PO SCH (08:57)
[2019-11-17] MEDS: Zithromax 500 MG/ 250 ML NaCl Premix 500 MG/250 ML IVPB IV SCH (08:58)
[2019-11-17] MEDS: ENOXAPARIN SODIUM SQ SCH (08:59)
[2019-11-17] MEDS: Lantus Insulin SQ SCH (09:10)
[2019-11-17] MEDS ORDERED: NON-FORMULARY ITEM (Aripiprazole [Aripiprazole] 5 mg) PO SCH (10:00)
[2019-11-17] MEDS ORDERED: Zestril 20 MG PO SCH (10:00)
[2019-11-17] MEDS ORDERED: Toprol Xl 50 MG PO SCH (20:00)
[2019-11-17] MEDS ORDERED: PLAVIX 75 MG Tablet PO SCH (20:00)
[2019-11-17] MEDS ORDERED: NORVASC 5 MG PO SCH (20:00)
== END 2019-11-17 10:32 | disposition home or self-care (01) ==
LOC: ED 16:15 → ICU 17:50
PROVIDERS: ADMIT Family Medicine; ATTEND Family Medicine
DX: E11.00 Type 2 diabetes mellitus with hyperosmolarity without nonketotic hyperglycemic-hyperosmolar coma (NKHHC) (principal); J44.1 Chronic obstructive pulmonary disease with (acute) exacerbation; E11.22 Type 2 diabetes mellitus with diabetic chronic kidney disease; I12.9 Hypertensive chronic kidney disease with stage 1 through stage 4 chronic kidney disease, or unspecified chronic kidney disease; N18.9 Chronic kidney disease, unspecified; E11.65 Type 2 diabetes mellitus with hyperglycemia; R05 Cough; E78.00 Pure hypercholesterolemia, unspecified; I25.2 Old myocardial infarction; Z79.899 Other long term (current) drug therapy
CPT/HCPCS: 36415; 80048; 80053; 81001; 82805; 82947; 82962; 83605; 83735; 84145; 84484; 85025; 87631; 87651; 93005; 93041; 93268; 94640; 94660; 96372; 99291; G0378; 36000; 71045; 94760; 99285; J0456; J0696; J1650; J1815; J1817; A9270-GY

== ENCOUNTER 2020-11-21 07:42 | Emergency (ER) | payer OTHER ==
[2020-11-21 07:53] VITALS: BP 170/134; PULSE 85; O2SAT 93
[2020-11-21] MEDS ORDERED: XYLOCAINE 1% HCL 20 ML MDV ONE (07:57)
[2020-11-21] MEDS ORDERED: BACIGUENT PACKET TP ONE (08:14)
--- NOTE | 2020-11-21 08:14 | ERPHSYRPT ---
- History of Present Illness Time Seen by Provider: 11/21/20 07:53 Source: patient Exam Limitations: no limitations Patient Subjective Stated Complaint: Pt was cutting a zip tie with a knife and cut his left thumg at the [facility] Triage Nursing Assessment: Pt was brought to the ER by his daughter, hypertensive, approx 4 cm laceration to the left thumb at the knuckle, pulses normal, denies pain, bleeding controlled by pressure Physician History: 65 years old right-handed dominant male with a history of hypertension, hyperlipidemia, diabetes mellitus presented in the ER with chief complaint of left thumb laceration while he was cutting a zip tie with a knife and accidentally cut his left thumb prior to arrival. There was bleeding initially but stopped after applying pressure. Complaining of mild dull aching pain with movements and better with being still. Up-to-date with tetanus. No injury anywhere else. Occurred: just prior to arrival Method of Injury: incised Quality: constant, dullness Severity of Pain-Max: mild Severity of Pain-Current: mild Extremities Pain Location: thumb: left Modifying Factors: Improves With: immobilization. Worsens With: movement Associated Symptoms: none Allergies/Adverse Reactions: Penicillins Allergy (Mild, Verified 11/21/20 07:53) Hives Xqjrwhw-Nwe-Ylc Reductase Inhibitor Allergy (Mild, Verified 11/21/20 07:53) Hives tramadol Allergy (Mild, Verified 11/21/20 07:53) rash, difficulty walking- muscle soreness Home Medications: Amlodipine Besylate 5 mg [Norvasc 5 mg] 5 mg PO DAILY 12/04/15 [History] Gabapentin [Neurontin] 300 mg PO BID 12/04/15 [History] Omeprazole [Prilosec] 40 mg PO DAILY 12/04/15 [History] Tamsulosin HCl [Flomax] 0.4 mg PO BID 12/04/15 [History] ARIPiprazole [Aripiprazole] 5 mg DAILY 11/15/19 [History] Albuterol 8 gm Mdi Hfa [Ventolin Hfa MDI] 1 ea QID 11/15/19 [History] Clopidogrel Bisulfate [Clopidogrel] 75 mg DAILY 11/15/19 [History] Dulaglutide [Trulicity] 1.5 mg WEEKLY 11/15/19 [History] Fluoxetine HCl 40 mg DAILY 11/15/19 [History] Fluticasone/Umeclidin/Vilanter [Trelegy Ellipta 100-62.5-25] 1 ea DAILY 11/15/19 [History] Furosemide 40 mg [Lasix 40 MG] 40 mg DAILY 11/15/19 [History] Insulin Degludec [Tresiba Flextouch U-200] 200 unit SQ DAILY 11/15/19 [History] Metoprolol Succinate 50 mg DAILY 11/15/19 [History] Modafinil [Provigil] 200 mg DAILY 11/15/19 [History] Niacin 1,000 mg DAILY 11/15/19 [History] Potassium Chloride [Klor-Con M20] 20 meq DAILY 11/15/19 [History] Solifenacin Succinate 1 ea DAILY 11/15/19 [History] lisinopriL [Lisinopril] 10 mg DAILY 11/15/19 [History] raNITIdine HCL [Zantac] 2 ea BID 11/15/19 [History] Hx Tetanus, Diphtheria Vaccination/Date Given: No Hx Influenza Vaccination/Date Given: Yes Hx Pneumococcal Vaccination/Date Given: Yes Travel Risk - International Travel Have you traveled outside of the country in past 3 weeks: No - Coronavirus Screening Are you exhibiting any of the following symptoms?: No Close contact with a COVID-19 positive Pt in past 14-21 Days: No - Vaccine Status Have you recieved a Covid-19 vaccination: Yes Balloon Tester: Moderna - Vaccination Dates Date of 2cond Vaccination (if applicable): 12/11/2020 - Review of Systems Constitutional: No Symptoms Eyes: No Symptoms Ears, Nose, & Throat: No Symptoms Respiratory: No Symptoms Cardiac: No Symptoms Abdominal/Gastrointestinal: No Symptoms Genitourinary Symptoms: No Symptoms Musculoskeletal: Injury Skin: Skin Lesions Neurological: No Symptoms Psychological: No Symptoms Endocrine: No Symptoms - Past Medical History Pertinent Past Medical History: Yes Neurological History: Peripheral Neuropathy ENT History: No Pertinent History Cardiac History: High Cholesterol, Hypertension, Myocardial Infarction (MA) Respiratory History: COPD Endocrine Medical History: Diabetes Type II Musculoskeletal History: Arthritis GI Medical History: GERD History: No Pertinent History Psycho-Social History: No Pertinent History Male Reproductive Disorders: Prostate Problems Other Medical History: URINARY RETENTION. GOUT. chronic back pain - Past Surgical History Past Surgical History: Yes Neuro Surgical History: No Pertinent History Cardiac: Cardiac Catheterization, Cardiac Stent Respiratory: No Pertinent History Gastrointestinal: No Pertinent History Genitourinary: No Pertinent History Musculoskeletal: No Pertinent History Male Surgical History: Prostate Surgery Other Surgical History: FINGER REPAIR - Social History Smoking Status: Former smoker Exposure to second hand smoke: No Drug Use: none Patient Lives Alone: No Significant Family History: no pertinent family hx - Nursing Vital Signs Nursing Vital Signs: Initial Vital Signs Temperature 96.6 F 11/21/20 07:47 Pulse Rate 85 11/21/20 07:47 Blood Pressure 170/134 11/21/20 07:47 O2 Sat by Pulse Oximetry 93 L 11/21/20 07:47 Pain Scale Pain Intensity 0 - Physical Exam General Appearance: no apparent distress Neck Exam: normal inspection, full range of motion Cardiovascular/Respiratory Exam: normal breath sounds, regular rate/rhythm Elbow/Forearm Exam: normal inspection, non-tender, no evidence of injury Wrist Exam: normal inspection, non-tender, no evidence of injury, normal ROM Hand Exam: normal ROM, laceration (4cm flap laceration left thumb lateral aspect around interphalangeal joint area. Intact distal neurovascular), No bone tenderness Neuro/Tendon Exam: normal sensation, normal motor functions, normal tendon functions Mental Status Exam: alert, oriented x 3, cooperative Skin Exam: normal color SpO2 Interpretation: normal SpO2: 93 O2 Delivery: Room Air Procedures - Laceration/Wound Repair Left Finger Time of Procedure: 08:05 Wound Location: Left Wound Length (cm): 4 (Left thumb) Wound's Depth, Shape: superficial Wound Explored: clean Irrigated: Yes Hibiclens Prep: Yes Anesthesia: 1% Lidocaine Volume Anesthetic (ccs): 5 Wound Repaired With: sutures Suture Size/Type: 4-0, ethilon Number of Sutures: 5 Layer Closure?: No Ordered Tests: Medication Summary Discontinued Medications Generic Name Dose Route Start Last Admin Trade Name Freq PRN Reason Stop Dose Admin Bacitracin Zinc 0.9 gm 11/21/20 08:14 Baciguent Packet TP 11/21/20 08:15 STAT ONE Lidocaine HCl Confirm 11/21/20 07:57 Xylocaine 1% Hcl 20 Ml Mdv Administered 11/21/20 07:58 Dose 5 ml .ROUTE .STREDWAVE ENERGY-MED ONE - Progress Progress: improved Progress Note: 11/21/20 08:12 Patient is up-to-date with tetanus. Laceration is repaired. Placed in a splint for couple of days. Bacitracin applied. Recommended Tylenol for symptomatic relief. Discussed signs symptoms of infection needing return to ER which he seems understanding. Outpatient follow-up for reevaluation and suture removal. - Departure Departure Disposition: Home Clinical Impression: Laceration of thumb Qualifiers: Encounter type: sequela Damage to nail status: without damage Foreign body presence: without foreign body Laterality: left Qualified Code(s): S61.012S - Laceration without foreign body of left thumb without damage to nail, sequela Condition: Stable Critical Care Time: No Referrals: FERNANDO REAL [Primary Care Provider] - Follow Up with PCP/3 days Instructions: Laceration Repair With Stitches (DC) Additional Instructions: Take Tylenol as needed for pain. Keep it clean and dry. Follow-up with primary care for reevaluation. Suture removal in 10 to 14 days. Return to ER for increasing pain swelling redness discharge/fever chills etc.
[2020-11-21] MEDS ORDERED: BACIGUENT PACKET ONE (08:20)
[2020-11-21] MEDS ORDERED: XYLOCAINE 1% HCL 20 ML MDV IJ ONE (08:23)
== END 2020-11-21 08:26 | disposition home or self-care (01) ==
LOC: ED 07:42
DX: S61.012S Laceration without foreign body of left thumb without damage to nail, sequela (principal); W26.0XXA Contact with knife, initial encounter; Y93.89 Activity, other specified; Y92.89 Other specified places as the place of occurrence of the external cause; I10 Essential (primary) hypertension; E78.5 Hyperlipidemia, unspecified; E11.9 Type 2 diabetes mellitus without complications; Z79.899 Other long term (current) drug therapy
CPT/HCPCS: 12002; 96372; 99283; A9270-GY

== ENCOUNTER 2024-07-18 10:11 | Emergency (ER) | payer MEDICARE ==
[2024-07-18 10:31] VITALS: TEMP 97.3
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
[2024-07-18 11:08] LABS: Absolute Neutrophil Ct (ANC) 3.13 x10^3/uL (1.78-5.38); BASOPHIL % 0.8 % (0.2-1.2); Basophil (Absolute #) 0.04 x10^3/uL (0.01-0.08); Eosinophil % 7.5 % (0.8-7.0); Eosinophil (Absolute #) 0.38 x10^3/uL (0.04-0.54); Hematocrit 40.9 % (40.1-51.0); Hemoglobin 13.1 g/dL (13.7-17.5); IMMATURE GRAN # 0.13 x10^3u/L (0.001-0.031); IMMATURE GRAN % 2.5 % (0.001-0.429); Lymphocyte (Absolute #) 1.14 x10^3/uL (1.32-3.57); Lymphocytes % 22.4 % (21.8-53.1); Mean Cell Volume 97.6 fL (79.0-92.2); Mean Corpuscular Hemoglobin 31.3 pg (25.7-32.2); Monocyte (Absolute #) 0.28 x10^3/uL (0.30-0.82); Monocytes % 5.5 % (5.3-12.2); Neutrophil % 61.3 % (34.0-67.9); Platelet Count 110 x10^3/uL (163-337); Red Blood Count 4.19 x10^6/uL (4.63-6.08); Red Cell Distribution Width 13.4 % (11.6-14.4); White Blood Count 5.1 x10^3/uL (4.23-9.07)
[2024-07-18 11:28] LABS: Appearance Clear (Clear); Bacteria None Seen /HPF (None Seen); Bilirubin Negative (Negative); Blood Negative (Negative); Epithelial Cells None Seen /HPF (None Seen); Glucose, Urine >=1000 mg/dL (Negative); Hyaline Casts NONE SEEN /LPF (0-2); Ketones Negative (Negative); Leukocyte Esterase Negative (Negative); Nitrite Negative (Negative); Ph 5.5 (4.6-8.0); Protein,Urine Dip Negative (Negative); RBC 0-2 /HPF (0-5); Urobilinogen 0.2 mg/dL (0.2); WBC 0-2 /HPF (0-5)
--- NOTE | 2024-07-18 11:28 | XRAY ---
Indication: Right flank pain. Multiple contiguous axial images obtained through the abdomen and pelvis without contrast using renal stone protocol. Comparison: None Incompletely visualized lower thoracic fusion hardware, bilateral SI joints fusion screws, and pubic symphysis fusion hardware produces extreme beam artifact limiting exam. Lung bases demonstrates left hemidiaphragm elevation with adjacent subsegmental atelectasis/scarring. Heart not enlarged. Left hemidiaphragm elevation. No renal calculus or evidence for obstructive uropathy in either system. Stomach is distended with food/fluid. Noncontrasted stomach and bowel loops appear nonobstructed with normal appendix. Mild scattered descending and sigmoid diverticulosis without diverticulitis. Gallbladder demonstrates dense sludge in the dependent portion. Enlarged prostate gland impresses on the base of the bladder. No free fluid/air. Remaining liver, gallbladder, pancreas, spleen, adrenal glands, kidneys, ureters, bladder, and aorta are unremarkable for noncontrast exam. Remaining osseous structures intact with osteopenia, mild/moderate multilevel thoracolumbar degenerative spondylosis, mild degenerative changes both hips, and 1.5 cm left innominate bone island. Small fatty bilateral inguinal hernias. Impression: 1. Beam artifact from hardware in thoracic spine, SI joints, and pubic symphysis limits exam. 2. No renal calculus or evidence for obstructive uropathy. 3. Gallbladder sludge. Sonogram may yield further information if there is clinical concern. 4. Chronic findings including left hemidiaphragm elevation with atelectasis/scarring, colonic diverticulosis, enlarged prostate gland, chronic bony findings, and bilateral fatty inguinal hernias.
--- NOTE | 2024-07-18 11:30 | XRAY ---
Indication: Short of breath. COPD. Comparison: April 20, 2023 Portable chest again demonstrates chronic left hemidiaphragm elevation with adjacent subsegmental atelectasis/scarring. Remaining heart and lungs unremarkable. Bony thorax intact with again mild degenerative changes. New T5-T8 bilateral posterior fusion hardware.
[2024-07-18] MEDS ORDERED: Zithromax 500 MG/ 250 ML NaCl Premix 500 MG/250 ML IVPB IV ONE (11:34)
[2024-07-18] MEDS: Zithromax 500 MG/ 250 ML NaCl Premix 500 MG/250 ML IVPB IV STA (11:34)
[2024-07-18 11:48] LABS: VBG BASE EXCESS 2.9 (-2.0-2.0); VBG CARBOXYHEMOGLOBIN 2.7 % T HGB (0.0-6.9); VBG HEMOGLOBIN 13.3; VBG O2 SATURATION 61.7 (95-100); VBG pH 7.3 (7.32-7.42)
[2024-07-18 11:58] LABS: ALBUMIN 3.8 g/dL (3.5-5.0); ANION GAP 14.3 MEQ/L (5-15); BILIRUBIN,TOTAL 0.4 mg/dL (0.2-1.3); Creatinine 1 2.34 mg/dL (0.66-1.25); EST GLOMERULAR FILTRATION RATE 29.7 ML/MIN; Potassium 4.8 mmol/L (3.5-5.1); TSH, 3RD Generation 2.002 mIU/L (0.470-4.680); Total Protein 6.3 g/dL (6.3-8.2)
[2024-07-18 12:04] LABS: INFLUENZA A NEGATIVE (NEGATIVE); INFLUENZA B NEGATIVE (NEGATIVE); RESPIRATORY SYNCTIAL VIRUS NEGATIVE (NEGATIVE); SARS-CoV-2 Xpert Express NEGATIVE (NEGATIVE)
[2024-07-18 14:03] VITALS: O2SAT 97
[2024-07-18 15:12] VITALS: BP 153/104; PULSE 69; RESP 9
== END 2024-07-18 15:20 | disposition short-term general hospital (02) ==
LOC: ED 10:11
DX: J44.1 Chronic obstructive pulmonary disease with (acute) exacerbation (principal); E11.65 Type 2 diabetes mellitus with hyperglycemia; E11.22 Type 2 diabetes mellitus with diabetic chronic kidney disease; N18.9 Chronic kidney disease, unspecified; R79.1 Abnormal coagulation profile; R77.8 Other specified abnormalities of plasma proteins; R53.1 Weakness; Z79.4 Long term (current) use of insulin; Z79.84 Long term (current) use of oral hypoglycemic drugs; Z79.899 Other long term (current) drug therapy
CPT/HCPCS: 0241U; 36415; 71045; 74176; 80053; 81001; 82150; 82805; 83605; 83690; 83880; 84443; 84484; 85025; 85379; 87651; 93005; 96365; 99285; J0456